=== PATIENT | female | born 1985 | race Caucasian/White ===

== ENCOUNTER 2017-11-04 18:15 | Emergency (ER) | payer BC ==
[~2017-11-04] VITALS: Ht 162.6 cm; Wt 119.1 kg
[2017-11-04 18:18] VITALS: BP 147/93
[2017-11-04 19:12] LABS: HCG UR SG 1.026 (1.003-1.030)
== END 2017-11-04 19:56 | disposition home or self-care (01) ==
LOC: ED 19:18
DX: O26.891 Other specified pregnancy related conditions, first trimester (principal); R11.0 Nausea; I10 Essential (primary) hypertension; Z3A.01 Less than 8 weeks gestation of pregnancy
CPT/HCPCS: 81025; 99283

== ENCOUNTER 2017-11-09 05:26 | Emergency (ER) | payer BC ==
[~2017-11-09] VITALS: Ht 162.6 cm; Wt 119.0 kg
[2017-11-09 05:27] VITALS: BP 141/87
[2017-11-09 06:15] LABS: CULTURE INDICATED? YES; MICROSCOPIC INDICATED
[2017-11-09 06:41] LABS: BASOPHILS # (AUTO) 0.13 x10^3/uL (0-0.1); BASOPHILS % (AUTO) 1 % (0-1); EOSINOPHILS # (AUTO) 0.38 x10^3/uL (0-0.4); EOSINOPHILS % (AUTO) 4 % (1-7); LYMPHOCYTES # (AUTO) 2.92 x10^3/uL (1-3.4); LYMPHOCYTES % (AUTO) 29 % (22-44); MD NO; MEAN CORPUSCULAR HEMOGLOBIN 30.1 pg (27.0-34.8); MEAN CORPUSCULAR HGB CONC 33.7 g/dL (32.4-35.8); MEAN CORPUSCULAR VOLUME 89.2 fL (80-100); MONOCYTES # (AUTO) 0.75 x10^3/uL (0.2-0.8); MONOCYTES % (AUTO) 8 % (2-9); NEUTROPHILS # (AUTO) 5.73 x10^3/uL (1.8-6.8); NEUTROPHILS % (AUTO) 58 % (42-75); PLATELET COUNT 248 x10^3/uL (130-400); RED BLOOD COUNT 4.81 x10^6/uL (3.82-5.3); RED CELL DISTRIBUTION WIDTH 13.5 % (9.6-15.2)
[2017-11-09 06:51] LABS: ALBUMIN 3.5 g/dL (3.4-5.0); ANION GAP 8 mmol/L (5-15); CALCIUM 9.1 mg/dL (8.5-10.1); CHLORIDE 105 mmol/L (98-107); CREATININE 0.77 mg/dL (0.55-1.02)
== END 2017-11-09 07:32 | disposition home or self-care (01) ==
LOC: ED 07:15
DX: O20.0 Threatened abortion (principal); O23.11 Infections of bladder in pregnancy, first trimester; I10 Essential (primary) hypertension; Z3A.01 Less than 8 weeks gestation of pregnancy
CPT/HCPCS: 36415; 76801; 80048; 81001; 82040; 84702; 85025; 86901; 87086; 99285

== ENCOUNTER 2017-12-19 05:29 | Emergency (ER) | payer BC ==
[~2017-12-19] VITALS: Ht 162.6 cm; Wt 118.0 kg
[2017-12-19 06:11] LABS: CULTURE INDICATED? YES; MICROSCOPIC AUTO
[2017-12-19 06:19] LABS: BASOPHILS % (AUTO) 1 % (0-1); EOSINOPHILS # (AUTO) 0.29 x10^3/uL (0-0.4); EOSINOPHILS % (AUTO) 3 % (1-7); LYMPHOCYTES # (AUTO) 2.46 x10^3/uL (1-3.4); LYMPHOCYTES % (AUTO) 25 % (22-44); MD NO; MEAN CORPUSCULAR HGB CONC 34.6 g/dL (32.4-35.8); MEAN CORPUSCULAR VOLUME 89.5 fL (80-100); MEAN PLATELET VOLUME 10.2 fL (7.4-10.4); MONOCYTES # (AUTO) 0.78 x10^3/uL (0.2-0.8); MONOCYTES % (AUTO) 8 % (2-9); NEUTROPHILS # (AUTO) 6.39 x10^3/uL (1.8-6.8); NEUTROPHILS % (AUTO) 64 % (42-75); PLATELET COUNT 251 x10^3/uL (130-400); RED BLOOD COUNT 4.63 x10^6/uL (3.82-5.3); RED CELL DISTRIBUTION WIDTH 13.5 % (9.6-15.2)
[2017-12-19 07:28] VITALS: BP 135/79
== END 2017-12-19 07:57 | disposition home or self-care (01) ==
LOC: ED 07:56
DX: O20.9 Hemorrhage in early pregnancy, unspecified (principal); O26.891 Other specified pregnancy related conditions, first trimester; R35.0 Frequency of micturition; O16.4 Unspecified maternal hypertension, complicating childbirth; Z3A.13 13 weeks gestation of pregnancy
CPT/HCPCS: 36415; 76801; 81001; 84702; 85025; 86901; 87086; 99285

== ENCOUNTER 2018-01-17 21:14 | Emergency (ER) | payer BC ==
[~2018-01-17] VITALS: Ht 162.6 cm; Wt 118.0 kg
[2018-01-17 22:04] LABS: BASOPHILS # (AUTO) 0.03 x10^3/uL (0-0.1); BASOPHILS % (AUTO) 0 % (0-1); EOSINOPHILS # (AUTO) 0.16 x10^3/uL (0-0.4); EOSINOPHILS % (AUTO) 2 % (1-7); LYMPHOCYTES # (AUTO) 1.31 x10^3/uL (1-3.4); LYMPHOCYTES % (AUTO) 16 % (22-44); MD NO; MEAN CORPUSCULAR HEMOGLOBIN 30.9 pg (27.0-34.8); MEAN CORPUSCULAR HGB CONC 34.9 g/dL (32.4-35.8); MEAN CORPUSCULAR VOLUME 88.4 fL (80-100); MEAN PLATELET VOLUME 10.2 fL (7.4-10.4); MONOCYTES # (AUTO) 0.54 x10^3/uL (0.2-0.8); MONOCYTES % (AUTO) 7 % (2-9); NEUTROPHILS # (AUTO) 5.96 x10^3/uL (1.8-6.8); NEUTROPHILS % (AUTO) 75 % (42-75); PLATELET COUNT 268 x10^3/uL (130-400); RED BLOOD COUNT 4.32 x10^6/uL (3.82-5.3); RED CELL DISTRIBUTION WIDTH 13.1 % (9.6-15.2)
[2018-01-17 22:11] LABS: ALANINE AMINOTRANSFERASE 14 U/L (12-78); ALBUMIN 2.5 g/dL (3.4-5.0); ANION GAP 6 mmol/L (5-15); CALCIUM 8.3 mg/dL (8.5-10.1); CHLORIDE 111 mmol/L (98-107); CREATININE 0.64 mg/dL (0.55-1.02)
[2018-01-17 22:22] LABS: ALKALINE PHOSPHATASE 73 U/L (45-117); BILIRUBIN,TOTAL 0.3 mg/dL (0.2-1.0); TOTAL PROTEIN 7.1 g/dL (6.4-8.2)
[2018-01-17 23:12] LABS: CULTURE INDICATED? YES; MICROSCOPIC INDICATED
[2018-01-18 00:10] VITALS: BP 132/89
== END 2018-01-18 00:22 | disposition home or self-care (01) ==
LOC: ED 22:41
DX: O26.892 Other specified pregnancy related conditions, second trimester (principal); R55 Syncope and collapse; O16.2 Unspecified maternal hypertension, second trimester; Z3A.17 17 weeks gestation of pregnancy
CPT/HCPCS: 36415; 80053; 81001; 84443; 85025; 87086; 93005; 99285

== ENCOUNTER 2018-02-26 09:39 | Outpatient (CLI) | payer BC ==
[~2018-02-26] VITALS: Ht 162.6 cm; Wt 116.8 kg
[2018-02-26] MEDS ORDERED: LABETALOL 200 MG TABLET PO ONE (10:00)
[2018-02-26 10:14] LABS: MICROSCOPIC AUTO
[2018-02-26 10:14] LABS: BASOPHILS # (AUTO) 0.04 x10^3/uL (0-0.1); BASOPHILS % (AUTO) 0 % (0-1); EOSINOPHILS % (AUTO) 4 % (1-7); LYMPHOCYTES # (AUTO) 1.53 x10^3/uL (1-3.4); LYMPHOCYTES % (AUTO) 12 % (22-44); MD NO; MEAN CORPUSCULAR HEMOGLOBIN 31.1 pg (27.0-34.8); MEAN CORPUSCULAR HGB CONC 34.5 g/dL (32.4-35.8); MEAN CORPUSCULAR VOLUME 90.4 fL (80-100); MONOCYTES # (AUTO) 0.59 x10^3/uL (0.2-0.8); MONOCYTES % (AUTO) 5 % (2-9); NEUTROPHILS # (AUTO) 10.12 x10^3/uL (1.8-6.8); NEUTROPHILS % (AUTO) 79 % (42-75); PLATELET COUNT 264 x10^3/uL (130-400); RED BLOOD COUNT 4.55 x10^6/uL (3.82-5.3); RED CELL DISTRIBUTION WIDTH 13.6 % (9.6-15.2)
[2018-02-26 10:24] LABS: ALANINE AMINOTRANSFERASE 14 U/L (12-78); ALBUMIN 2.4 g/dL (3.4-5.0); ANION GAP 8 mmol/L (5-15); CALCIUM 9.2 mg/dL (8.5-10.1); CHLORIDE 109 mmol/L (98-107); CREATININE 0.62 mg/dL (0.55-1.02)
[2018-02-26 10:27] LABS: CREATININE,URINE RANDOM 33.1 mg/dL
[2018-02-26] MEDS ORDERED: PLEASE ENTER HEIGHT AND WEIGHT MC SCH (10:30)
[2018-02-26 10:31] LABS: ALKALINE PHOSPHATASE 92 U/L (45-117); BILIRUBIN,TOTAL 0.2 mg/dL (0.2-1.0); TOTAL PROTEIN 7.6 g/dL (6.4-8.2)
[2018-02-26 10:32] LABS: BILIRUBIN, DIRECT < 0.1 mg/dL (0.1-0.2)
[2018-02-26 10:55] VITALS: BP 117/72
[2018-02-26] MEDS ORDERED: PREN1TAB60 PO (12:01)
[2018-02-26] MEDS ORDERED: ASPI-515 PO (12:02)
== END 2018-02-26 12:05 | disposition home or self-care (01) ==
LOC: LDOP 09:39
PROVIDERS: ATTEND Obstetrics & Gynecology
DX: O26.892 Other specified pregnancy related conditions, second trimester (principal); Z3A.23 23 weeks gestation of pregnancy
CPT/HCPCS: 0399T; 36415; 59025; 80053; 81001; 82248; 82570; 84156; 84550; 85025; 93306; 99201; G0463

== ENCOUNTER 2018-06-15 04:05 | Inpatient (IN) | payer BC ==
[~2018-06-15] VITALS: Ht 162.6 cm; Wt 130.0 kg
[~2018-06-15 04:05] MED LIST: ASPI-515 PO; PREN1TAB60 PO
[2018-06-15] MEDS ORDERED: OXYTOCIN 30U/ 0.9% NaCL 500ML 500 ML IV ONE (04:06)
[2018-06-15] MEDS ORDERED: OXYTOCIN 30U/ 0.9% NaCL 500ML 500 ML IV PRN (04:06)
[2018-06-15] MEDS ORDERED: D5%-LACTATED RINGERS 1,000 ML IV SCH (04:06)
[2018-06-15] MEDS ORDERED: LACTATED RINGERS 1,000 ML IV SCH ×2 (04:11→09:40)
[2018-06-15] MEDS ORDERED: FENTANYL/BUPIV./NS/PF 250 ML EPIDCONT SCH ×2 (04:11→09:40)
[2018-06-15] MEDS ORDERED: NEWBORN KIT ONE (04:13)
[2018-06-15] MEDS ORDERED: LIDOCAINE 1%, 20ML ONE (04:14)
[2018-06-15] MEDS ORDERED: MISOPROSTOL 25 MCG TABLET ONE (04:14)
[2018-06-15] MEDS ORDERED: OXYTOCIN 30U/ 0.9% NaCL 500ML 500 ML ONE (04:14)
[2018-06-15] MEDS ORDERED: MISOPROSTOL 200 MCG TABLET ONE (04:14)
[2018-06-15] MEDS ORDERED: MISOPROSTOL 25 MCG TABLET VG PRN (04:30)
[2018-06-15] MEDS ORDERED: LACTATED RINGERS 1,000 ML IVBOLUS PRN ×2 (04:30→10:00)
[2018-06-15] MEDS ORDERED: ONDANSETRON 2MG/ML, 2ML IVPush PRN ×2 (04:30→10:00)
[2018-06-15] MEDS ORDERED: FENTANYL PF 100 MCG/2ML IV PRN (04:30)
[2018-06-15] MEDS ORDERED: CALCIUM CARBONATE 500 MG TAB.CHEW PO PRN ×2 (04:30→18:30)
[2018-06-15] MEDS ORDERED: FENTANYL PF 100 MCG/2ML IVPush PRN (04:30)
[2018-06-15] MEDS ORDERED: SODIUM CITRATE/CITRIC ACID 30 ML UDC PO PRN (04:30)
[2018-06-15] MEDS ORDERED: PLEASE ENTER HEIGHT AND WEIGHT MC SCH (04:30)
[2018-06-15 04:39] LABS: BASOPHILS # (AUTO) 0.06 x10^3/uL (0-0.1); BASOPHILS % (AUTO) 1 % (0-1); EOSINOPHILS # (AUTO) 0.32 x10^3/uL (0-0.4); EOSINOPHILS % (AUTO) 3 % (1-7); LYMPHOCYTES # (AUTO) 2.43 x10^3/uL (1-3.4); LYMPHOCYTES % (AUTO) 21 % (22-44); MD NO; MEAN CORPUSCULAR HEMOGLOBIN 29.6 pg (27.0-34.8); MEAN CORPUSCULAR HGB CONC 34.1 g/dL (32.4-35.8); MEAN CORPUSCULAR VOLUME 86.9 fL (80-100); MONOCYTES # (AUTO) 0.92 x10^3/uL (0.2-0.8); MONOCYTES % (AUTO) 8 % (2-9); NEUTROPHILS # (AUTO) 7.61 x10^3/uL (1.8-6.8); NEUTROPHILS % (AUTO) 67 % (42-75); PLATELET COUNT 288 x10^3/uL (130-400); RED BLOOD COUNT 4.73 x10^6/uL (3.82-5.3); RED CELL DISTRIBUTION WIDTH 15.2 % (9.6-15.2)
[2018-06-15] MEDS ORDERED: hydrALAzine 20 MG/ML, 1ML ONE ×2 (04:59→05:31)
[2018-06-15] MEDS ORDERED: hydrALAzine 20 MG/ML, 1ML IV ONE ×2 (05:00→05:30)
[2018-06-15] MEDS: LACTATED RINGERS 1,000 ML IV SCH ×2 (05:03→09:42)
[2018-06-15 05:37] LABS: ALANINE AMINOTRANSFERASE 13 U/L (12-78); ALBUMIN 2.1 g/dL (3.4-5.0); ANION GAP 9 mmol/L (5-15); CALCIUM 8.5 mg/dL (8.5-10.1); CHLORIDE 107 mmol/L (98-107)
[2018-06-15 05:40] LABS: ALKALINE PHOSPHATASE 191 U/L (45-117); BILIRUBIN, DIRECT < 0.1 mg/dL (0.1-0.2); BILIRUBIN,TOTAL 0.2 mg/dL (0.2-1.0); TOTAL PROTEIN 7.4 g/dL (6.4-8.2)
[2018-06-15 06:35] LABS: MICROSCOPIC INDICATED
[2018-06-15 06:44] LABS: PROTEIN/CREATININE RATIO,URINE < 265 (0-200); TOTAL PROTEIN,URINE RANDOM < 5 mg/dL (0-12)
[2018-06-15] MEDS ORDERED: LABETALOL 200 MG TABLET ONE (06:45)
[2018-06-15] MEDS ORDERED: LABETALOL 200 MG TABLET PO ONE (07:00)
[2018-06-15] MEDS ORDERED: LABETALOL 5MG/ML 40ML VIAL IVPush ONE (07:30)
[2018-06-15] MEDS ORDERED: LABETALOL 5MG/ML, 20ML IVPush ONE (07:30)
[2018-06-15] MEDS ORDERED: hydrALAzine 20 MG/ML, 1ML IVPush ONE ×2 (07:30)
[2018-06-15] MEDS ORDERED: TERBUTALINE 1 MG/ML, 1ML ONE (08:01)
[2018-06-15] MEDS ORDERED: DIPH,PERTUSS(ACELL),TET VAC/PF NC IM-VACC ONE ×2 (08:12→08:30)
[2018-06-15] MEDS ORDERED: FENTANYL/BUPIV./NS/PF 250 ML EPIDCONT ONE (08:44)
[2018-06-15] MEDS ORDERED: BUPIVACAINE 0.25% ONE (08:44)
[2018-06-15] MEDS ORDERED: TERBUTALINE 1 MG/ML, 1ML IVPush PRN ×2 (09:30)
[2018-06-15] MEDS ORDERED: EPHEDRINE 50 MG/ML, 1ML IVPush PRN (10:00)
[2018-06-15] MEDS ORDERED: NALOXONE 0.4 MG/ML, 1ML IVPush PRN (10:00)
[2018-06-15] MEDS ORDERED: DIPHENHYDRAMINE 50 MG/ML, 1ML IVPush PRN (10:00)
[2018-06-15] MEDS ORDERED: LACTATED RINGERS 1,000 ML INTUTE SCH (11:00)
[2018-06-15] MEDS ORDERED: LACTATED RINGERS 1,000 ML INTUTE PRN (11:00)
[2018-06-15] MEDS ORDERED: LIDOCAINE/MPF 2%-EPI 1:200K, 20 ML ONE (17:04)
[2018-06-15] MEDS ORDERED: MISOPROSTOL 200 MCG TABLET PR PRN (18:30)
[2018-06-15] MEDS ORDERED: ONDANSETRON 2MG/ML, 2ML IV PRN (18:30)
[2018-06-15] MEDS ORDERED: OXYcodone/APAP 5/325MG TABLET PO PRN ×2 (18:30)
[2018-06-15] MEDS ORDERED: ACETAMINOPHEN 325 MG TABLET PO PRN (18:30)
[2018-06-15 20:50] VITALS: BP 141/87
[2018-06-15] MEDS: DOCUSATE 100 MG CAPSULE PO PRN (21:23)
[2018-06-15] MEDS: OXYTOCIN 30U/ 0.9% NaCL 500ML 500 ML IV SCH (21:23)
[2018-06-15] MEDS: IBUPROFEN 600 MG TABLET PO PRN (21:23)
[2018-06-16 00:15] VITALS: BP 134/86
[2018-06-16 02:56] LABS: MEAN CORPUSCULAR HEMOGLOBIN 29.6 pg (27.0-34.8); MEAN CORPUSCULAR HGB CONC 33.8 g/dL (32.4-35.8); MEAN CORPUSCULAR VOLUME 87.6 fL (80-100); MEAN PLATELET VOLUME 10.2 fL (7.4-10.4); PLATELET COUNT 243 x10^3/uL (130-400); RED BLOOD COUNT 4.12 x10^6/uL (3.82-5.3); RED CELL DISTRIBUTION WIDTH 15.3 % (9.6-15.2)
[2018-06-16 03:30] LABS: BASOPHILS # (AUTO) 0.03 x10^3/uL (0-0.1); BASOPHILS % (AUTO) 0 % (0-1); EOSINOPHILS # (AUTO) 0.07 x10^3/uL (0-0.4); EOSINOPHILS % (AUTO) 0 % (1-7); LYMPHOCYTES # (AUTO) 1.89 x10^3/uL (1-3.4); LYMPHOCYTES % (AUTO) 9 % (22-44); MD SCAN; MONOCYTES # (AUTO) 1.15 x10^3/uL (0.2-0.8); MONOCYTES % (AUTO) 6 % (2-9); NEUTROPHILS # (AUTO) 17.29 x10^3/uL (1.8-6.8); NEUTROPHILS % (AUTO) 85 % (42-75)
[2018-06-16] MEDS: OXYTOCIN 30U/ 0.9% NaCL 500ML 500 ML IV SCH ×2 (04:22→14:22)
[2018-06-16 04:30] VITALS: BP 122/75
[2018-06-16 09:00] VITALS: BP 129/83
[2018-06-16] MEDS: DOCUSATE 100 MG CAPSULE PO PRN (09:00)
[2018-06-16] MEDS ORDERED: PRENATAL VIT/IRON/FA 1 EACH TABLET PO SCH (09:00)
[2018-06-16 13:00] VITALS: BP 138/89
[2018-06-16] MEDS: IBUPROFEN 600 MG TABLET PO PRN (13:53)
== END 2018-06-16 17:41 | disposition home or self-care (01) | DRG 806 ==
LOC: LDIP 04:05 → 2NW 20:19
PROVIDERS: ADMIT Obstetrics & Gynecology; ATTEND Obstetrics & Gynecology
PROC: 10E0XZZ Delivery of Products of Conception, External Approach (ICD-10-PCS; principal; 2018-06-15)
PROC: 0HQ9XZZ Repair Perineum Skin, External Approach (ICD-10-PCS; 2018-06-15)
PROC: 3E0R3BZ Introduction of Anesthetic Agent into Spinal Canal, Percutaneous Approach (ICD-10-PCS; 2018-06-15)
PROC: 00HU33Z Insertion of Infusion Device into Spinal Canal, Percutaneous Approach (ICD-10-PCS; 2018-06-15)
PROC: 10907ZC Drainage of Amniotic Fluid, Therapeutic from Products of Conception, Via Natural or Artificial Opening (ICD-10-PCS; 2018-06-15)
DX: O99.344 Other mental disorders complicating childbirth (principal); O10.92 Unspecified pre-existing hypertension complicating childbirth; Z37.0 Single live birth; O76 Abnormality in fetal heart rate and rhythm complicating labor and delivery; F41.9 Anxiety disorder, unspecified; J45.909 Unspecified asthma, uncomplicated; O99.214 Obesity complicating childbirth; E66.01 Morbid (severe) obesity due to excess calories; O99.52 Diseases of the respiratory system complicating childbirth; O70.0 First degree perineal laceration during delivery; Z3A.39 39 weeks gestation of pregnancy; Z82.49 Family history of ischemic heart disease and other diseases of the circulatory system; Z83.3 Family history of diabetes mellitus; Z91.018 Allergy to other foods
CPT/HCPCS: 36415; 99285; J7121; 80053; 81001; 82248; 82570; 82803; 84156; 84550; 85025; 86850; 86900; 90715; G0378; J3490; J0360; J2590; J3010; J3105; J7120

== ENCOUNTER 2020-02-26 12:16 | Emergency (ER) | payer BC ==
[~2020-02-26] VITALS: Ht 162.6 cm; Wt 114.0 kg
[2020-02-26 14:24] LABS: BASOPHILS % (AUTO) 1 % (0-1); EOSINOPHILS % (AUTO) 2 % (1-7); LYMPHOCYTES % (AUTO) 16 % (22-44); MEAN CORPUSCULAR HEMOGLOBIN 30.3 pg (27.0-34.8); MEAN CORPUSCULAR HGB CONC 33.5 g/dL (32.4-35.8); MEAN PLATELET VOLUME 9.3 fL (7.4-10.4); MONOCYTES % (AUTO) 6 % (2-9); NEUTROPHILS % (AUTO) 76 % (42-75); PLATELET COUNT 306 x10^3/uL (130-400); RED BLOOD COUNT 4.95 x10^6/uL (3.82-5.3); RED CELL DISTRIBUTION WIDTH 12.9 % (9.6-15.2)
[2020-02-26 14:29] LABS: ALBUMIN 3.5 g/dL (3.4-5.0); ANION GAP 7 mmol/L (5-15); CALCIUM 9.4 mg/dL (8.5-10.1); CHLORIDE 109 mmol/L (98-107)
[2020-02-26 14:34] LABS: ALANINE AMINOTRANSFERASE 29 U/L (12-78); ALKALINE PHOSPHATASE 71 U/L (45-117); BILIRUBIN,TOTAL 0.4 mg/dL (0.2-1.0); CREATININE 0.86 mg/dL (0.55-1.02); TOTAL PROTEIN 8.4 g/dL (6.4-8.2); TROPONIN I < 0.015 ng/mL (0.000-0.045)
[2020-02-26 14:41] LABS: MD NO
--- NOTE | 2020-02-26 15:00 | NUR ---
TO ROOM FROM LOBBY HX OF UNTREATED ANXIETY. NOW WORSE SOCIAL STRESSORS QUITE SEVERE. BESIDES SENSE OF ANXIETY WITH CP ECG OBTAINED PLACED ON SUSTAIN[employer] SPECIALIST
[2020-02-26] MEDS ORDERED: LORazepam 1MG TABLET PO ONE (15:30)
[2020-02-26] MEDS ORDERED: LORazepam 1MG TABLET ONE (15:45)
--- NOTE | 2020-02-26 15:49 | NUR ---
medicated per emar for anxiety at 02/14 updated on estimated poc vss on wedger machine
[2020-02-26 15:50] VITALS: BP 137/98
[2020-02-26 16:10] LABS: FREE T4 (FREE THYROXINE) 1.12 ng/dL (0.76-1.46)
--- NOTE | 2020-02-26 16:10 | NUR ---
WITH REASSEMENT " I FEEL SO MUCH BETTER." PROVIDER MADE AWARE HR IMPROVED TO 105
== END 2020-02-26 16:42 | disposition home or self-care (01) ==
LOC: ED 16:15
DX: F41.1 Generalized anxiety disorder (principal); E03.9 Hypothyroidism, unspecified; R00.0 Tachycardia, unspecified; R07.89 Other chest pain; I10 Essential (primary) hypertension; Z90.89 Acquired absence of other organs
CPT/HCPCS: 36415; 71046; 80053; 84439; 84443; 84484; 85025; 93005; 99285